=== PATIENT | male | born 1950 | race Caucasian/White ===

== ENCOUNTER 2016-11-27 14:06 | Emergency (ER) | payer OTHER ==
[2016-11-27 14:21] VITALS: TEMP 98.2; O2SAT 97
--- NOTE | 2016-11-27 14:38 | UCPHY ---
H & P Time Seen by Provider: 11/27/16 14:23 Patient Type: Established HPI/ROS: CHIEF COMPLAINT: Abdominal pain HISTORY OF PRESENT ILLNESS: 66-year-old male presents to urgent care by private vehicle complaining of intermittent abdominal pain over the last several months. Patient states over last 24 hours or so his pain has become more constant and now is getting worse. He has never seen a doctor for his symptoms. He denies nausea or vomiting. He denies chest pain or difficulty breathing. He does not think that the pain is associated with eating or drinking anything. He occasionally feels that it radiates to his back. No diarrhea or melena. No blood in his stool. No urinary symptoms. No reported trauma. No headache. Denies paresthesias in his upper or lower extremities. No URI symptoms. He does report that he has lost 40 lb over the last few months although he states that he has changed his diet. REVIEW OF SYSTEMS: Constitutional: No fever, no chills. Eyes: No double or blurry vision. ENT: No sore throat. Respiratory: No cough, no shortness of breath. Cardiac: No chest pain. Gastrointestinal: Abdominal pain as above. No vomiting or diarrhea. Genitourinary: No dysuria. Musculoskeletal: No neck or back pain. Skin: No rashes. Neurological: No headache. Past Medical/Surgical History: Negative Social History: Smoking Status: Never smoked Physical Exam: General Appearance: Alert, no distress. 36.8, 129/84, heart rate 74, 97% on room air. Eyes: Pupils equal and round. Extraocular motions are all intact. ENT: Mouth: Mucous membranes moist. Respiratory: No wheezing, rhonchi, or rales, lungs are clear to auscultation. Cardiovascular: Regular rate and rhythm. Gastrointestinal: Abdomen is soft. He has tenderness with palpation just superior to the umbilicus. There is no rebound, guarding or masses noted. He has bilateral, mild, CVA tenderness. Neurological: Alert and oriented x 3, cranial nerves II through XII grossly intact Skin: Warm and dry, no rashes. Musculoskeletal: Nontender to palpate along the cervical, thoracic or lumbar spine. Neck is supple. Extremities: Full range of motion and no peripheral edema. Psychiatric: Patient is oriented X 3, there is no agitation. Constitutional: Initial Vital Signs Temperature (C) 36.8 C 11/27/16 14:17 Heart Rate 74 11/27/16 14:17 Respiratory Rate 16 11/27/16 14:17 Blood Pressure 129/84 H 11/27/16 14:17 O2 Sat (%) 97 11/27/16 14:17 O2 Delivery Mode Room Air Allergies/Adverse Reactions: No Known Allergies Allergy (Unverified 11/27/16 14:21) Home Medications: Medication Instructions Recorded NK [No Known Home Meds] 08/19/15 Medical Decision Making - Diagnostics Imaging: CT imaging of the abdomen and pelvis reveals an enlarged prostate, and mild to moderate constipation. No evidence of diverticulitis. There are few liver and kidney cysts which appear benign and do not require follow-up. This was reported to me by Dr. Nikolas Fair at 3:56 p.m.. ED Course/Re-evaluation: 66-year-old male presents to Urgent Care with intermittent abdominal pain for several months that became acutely worse over last 24 hours. Laboratory studies revealed normal CBC. His chemistries are all within normal limits including LFTs, lipase and basic metabolic panel. Given his abdominal pain that has now become worse, and his weight loss, I discussed the case with Dr. Paz, secondary supervising physician, who did not directly evaluate the patient but agrees with treatment and plan. CT imaging of the abdomen and pelvis has been ordered and is pending. CT imaging of the abdomen and pelvis reveals an enlarged prostate, and mild to moderate constipation. No evidence of diverticulitis. There are few liver and kidney cysts which appear benign and do not require follow-up. This was reported to me by Dr. Nikolas Fair at 3:56 p.m.. I encouraged the patient to follow up with primary care provider. He was given the on-call betting clerk phone number. I also gave him GI referral since he has never had a colonoscopy in the past. He was instructed to return or go to the emergency department if he developed recurring abdominal pain, vomiting, or if he felt worse in any way. Differential Diagnosis: Including but not limited to GERD, peptic ulcer disease, pancreatitis, hepatitis , acute appendicitis, carcinoma, bowel obstruction, colitis - Data Points Laboratory Results: Laboratory Results 11/27/16 14:45 11/27/16 14:45 11/27/16 11/27/16 14:50 14:45 WBC 6.31 10^3/uL (3.80-9.50) RBC 5.69 10^6/uL (4.40-6.38) Hgb 17.0 g/dL (13.7-17.5) Hct 48.8 % (40.0-51.0) MCV 85.8 fL (81.5-99.8) MCH 29.9 pg (27.9-34.1) MCHC 34.8 g/dL (32.4-36.7) RDW 15.3 H % (11.5-15.2) Plt Count 170 10^3/uL (150-400) MPV 10.6 fL (8.7-11.7) Neut % (Auto) 76.9 H % (39.3-74.2) Lymph % (Auto) 14.4 L % (15.0-45.0) [place] % (Auto) 6.8 % (4.5-13.0) Eos % (Auto) 1.1 % (0.6-7.6) Baso % (Auto) 0.5 % (0.3-1.7) Nucleat RBC Rel Count 0.0 % (0.0-0.2) Absolute Neuts (auto) 4.85 10^3/uL (1.70-6.50) Absolute Lymphs (auto) 0.91 L 10^3/uL (1.00-3.00) Absolute Monos (auto) 0.43 10^3/uL (0.30-0.80) Absolute Eos (auto) 0.07 10^3/uL (0.03-0.40) Absolute Basos (auto) 0.03 10^3/uL (0.02-0.10) Absolute Nucleated RBC 0.00 10^3/uL (0-0.01) Immature Gran % 0.3 % (0.0-1.1) Immature Gran # 0.02 10^3/uL (0.00-0.10) Sodium 141 mEq/L (134-144) Potassium 4.1 mEq/L (3.5-5.2) Chloride 104 mEq/L (97-110) Carbon Dioxide 27 mEq/l (22-31) Anion Gap 10 mEq/L (8-16) BUN 22 mg/dL (7-23) Creatinine 0.9 mg/dL (0.7-1.3) Estimated GFR > 60 Glucose 98 mg/dL (70-100) Calcium 9.3 mg/dL (8.5-10.4) Total Bilirubin 1.0 mg/dL (0.1-1.4) Conjugated Bilirubin 0.2 mg/dL (0.0-0.5) Unconjugated Bilirubin 0.8 mg/dL (0.0-1.1) AST 24 IU/L (17-59) ALT 38 IU/L (21-72) Alkaline Phosphatase 69 IU/L (38-126) Total Protein 6.7 g/dL (6.3-8.2) Albumin 3.6 g/dL (3.5-5.0) Lipase 267.0 IU/L (23-300) Urine Color YELLOW Urine Appearance CLEAR Urine pH 6.5 (5.0-7.5) Ur Specific [place] 1.025 (1.002-1.030) Urine Protein NEGATIVE (NEGATIVE) Urine Ketones TRACE H (NEGATIVE) Urine Blood NEGATIVE (NEGATIVE) Urine Nitrate NEGATIVE (NEGATIVE) Urine Bilirubin NEGATIVE (NEGATIVE) Urine Urobilinogen 1.0 EU (0.2-1.0) Ur Leukocyte Esterase NEGATIVE (NEGATIVE) Urine RBC REJ Urine WBC REJ Ur Epithelial Cells REJ Urine Glucose NEGATIVE (NEGATIVE) Departure - Departure Disposition: Home, Routine, Self-Care Clinical Impression: Abdominal pain Qualifiers: Abdominal location: periumbilical Qualifier Code: (R10.33) Periumbilical pain Constipation Qualifiers: Constipation type: unspecified constipation type Qualifier Code: (K59.00) Constipation, unspecified Condition: Good Instructions: Acute Abdominal Pain (ED), Constipation (ED), High Fiber Diet (ED ) Additional Instructions: Abdominal Pain: Return to the Emergency Department immediately for increasing pain, fever, vomiting, or if not completely better in 8-12 hours. Referrals: Betsy Lopez MD [Medical Doctor] - As per Instructions (Primary care provider technical consultant) - PQRS PQRS Measurement: Not applicable
[2016-11-27 14:49] LABS: % IMMATURE GRANULYOCYTES 0.3 % (0.0-1.1); ABSOLUTE IMMATURE GRANULOCYTES 0.02 10^3/uL (0.00-0.10); ADD DIFF? NO; ADD MORPH? NO; ADD SCAN? NO; ATYPICAL LYMPHOCYTE FLAG 0 (0-99); FRAGMENT RBC FLAG 0 (0-99); HEMATOCRIT 48.8 % (40.0-51.0); LEFT SHIFT FLG 0 (0-99); LIPEMIA HEMOLYSIS FLAG 90 (0-99); MEAN CELL HEMOGLOBIN 29.9 pg (27.9-34.1); MEAN CELL HEMOGLOBIN CONCENTR. 34.8 g/dL (32.4-36.7); MEAN CELL VOLUME 85.8 fL (81.5-99.8); MEAN PLATELET VOLUME 10.6 fL (8.7-11.7); PLATELET CLUMPS FLAG 10 (0-99); PLATELET COUNT 170 10^3/uL (150-400); RED BLOOD CELL COUNT 5.69 10^6/uL (4.40-6.38); RED CELL DISTRIBUTION WIDTH 15.3 % (11.5-15.2)
[2016-11-27 14:56] LABS: COLOR YELLOW; LEUKOCYTE ESTERASE,URINE NEGATIVE (NEGATIVE); NITRITE,URINE NEGATIVE (NEGATIVE); PH,URINE 6.5 (5.0-7.5)
[2016-11-27 15:01] LABS: ALANINE AMINOTRANSFERASE 38 IU/L (21-72); ALBUMIN 3.6 g/dL (3.5-5.0); ALKALINE PHOSPHATASE 69 IU/L (38-126); ANION GAP 10 mEq/L (8-16); ASPARTATE AMINOTRANSFERASE 24 IU/L (17-59); BILIRUBIN-CONJUGATED 0.2 mg/dL (0.0-0.5); BILIRUBIN-UNCONJUGATED 0.8 mg/dL (0.0-1.1); CALCIUM 9.3 mg/dL (8.5-10.4); CARBON DIOXIDE 27 mEq/l (22-31); CHLORIDE 104 mEq/L (97-110); CREATININE 0.9 mg/dL (0.7-1.3); GLOMERULAR FILTRATION RATE > 60; GLUCOSE 98 mg/dL (70-100); POTASSIUM 4.1 mEq/L (3.5-5.2); SODIUM 141 mEq/L (134-144); TOTAL PROTEIN 6.7 g/dL (6.3-8.2)
[2016-11-27] MEDS ORDERED: IOPAMIDOL (ISOVUE-300) 100 ML BTL IV ONE (15:21)
--- NOTE | 2016-11-27 15:57 | CT ---
CT Scan of the Abdomen and Pelvis (With Contrast) 1526 hours History: Abdominal pain Technique: Axial computed tomographic images of the abdomen and pelvis were obtained with the unevent ful intravenous administration of 90 mL Isovue-300 contrast. . Images were reviewed in multiple plane s. Dose reduction techniques were utilized. CT Abdomen and Pelvis Findings: Lung bases: Normal. Liver: There is a tiny 6 mm probable cyst right lobe liver posterior segment. No significant liver le douglas is seen. Spleen: There are a few calcified granulomas within the spleen. No focal splenic lesion is seen. Gallbladder and Bile Ducts: Normal. Pancreas: Normal. Adrenals: Normal. Kidneys: No obstruction or solid masses. There is a small less than 5 mm presumed cyst within the mid to upper left kidney laterally and mid to lower left kidney anteriorly. Abdominal Aorta: No aneurysm. Pelvic structures: The prostate is mildly enlarged measuring 5.5 x 5.5 x 3.8 cm. There is no pelvic l ymphadenopathy or ascites. Bladder: There is mild diffuse bladder wall thickening without focal abnormality. Appendix: Normal. Bowel Loops: There is moderate constipation. Small bowel loops are normal in appearance. No bowel obstruction, ascites, or significant retroperitoneal lymphadenopathy. Skeletal system: Vertebral body heights are well-maintained. There are no significant lytic or scler otic osseous lesions. Impression: 1. Tiny incidental cyst within the liver and left kidney. 2. No CT evidence of appendicitis, abscess or bowel obstruction. 3. Mildly enlarged prostate with diffuse thickening of the bladder wall suggestive of mild bladder ou tlet obstruction. 4. Mild to moderate constipation. These findings were discussed by telephone with Lory Forbes PA-C at 1555 hrs.
[2016-11-27 16:24] VITALS: BP 125/84; PULSE 72; RESP 18
== END 2016-11-27 16:23 | disposition home or self-care (01) ==
LOC: CED 14:06
DX: K59.00 Constipation, unspecified (principal); N40.0 Benign prostatic hyperplasia without lower urinary tract symptoms; K76.89 Other specified diseases of liver; N28.1 Cyst of kidney, acquired
CPT/HCPCS: 74177-PO; 80048-PO; 80076-PO; 81003-PO; 81015-PO; 83690-PO; 85025-PO; G0463-PO; Q9967